=== PATIENT | male | born 1985 | race Caucasian/White ===

== ENCOUNTER 2025-03-07 09:36 | Emergency (ER) | payer OTHER, SELFPAY ==
[2025-03-07 09:37] VITALS: BP 139/98; PULSE 109; RESP 18; TEMP 35.9; O2SAT 98; BMI 29.9
--- NOTE | 2025-03-07 09:41 | RAD_ITS ---
PROCEDURE: FOOT MIN 3 VIEWS 03/07/2025 REASON FOR EXAM: TOE INJURY AND DEFORMITY-LEFT GREAT TOE DIGIT #1 TECHNIQUE: Left foot three views COMPARISON: None FINDINGS: There is dislocation of the interphalangeal joint of the great toe with dorsal displacement of the distal phalanx. There is a 0.45 cm corticated osteochondral fragment noted at the level of the joint space on the lateral view. The Lisfranc articulation is aligned. There is no visible radiopaque foreign body or soft tissue abnormality. RAD/Foot min 3 Views IMPRESSION: There is dislocation of the interphalangeal joint of the great toe with dorsal displacement of the distal phalanx. There is a 0.45 cm corticated osteochondral fragment noted at the level of the joint space on the lateral view. Critical results were discussed with Viky by Dr. Baez at the time of di ctation. Reading Location: [facility]
--- NOTE | 2025-03-07 10:48 | ED.VIS.LOWEX ---
HPI History of Present Illness HPI Narrative: 39-year-old male no significant past medical history. 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 He was coming down a ladder he missed a couple rungs when he landed he injured his left great toe and dislocated. No prior history or surgery to this foot. 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 Prior similar symptoms: No Recent Illness/Hospitalization: No PFSH PFSH Medical History no medical history no medical history Home Medications ?Medication ?Instructions ?Recorded ?Last Taken ?Type NK 03/07/25 Unknown History Allergy/AdvReac Type Severity Reaction Status Date / Time No Known Allergies Allergy Verified 03/07/25 10:18 Surgical History H/O vasectomy Social History household members: spouse current occupational status: employed Smoking Status: Never smoker ROS ROS ED ROS Narrative Denies recent illness. Constitutional Constitutional ED: Denies fever(s) Eyes Eyes: Denies blurry vision ENT ENT ED: Denies ear pain Cardiovascular Cardiovascular: Denies chest pain Respiratory/Chest Respiratory/Chest: Denies cough Gastrointestinal Gastrointestinal: Denies abdominal pain Genitourinary Genitourinary ED: Denies dysuria Musculoskeletal Musculoskeletal: Denies arthralgias Integumentary Denies abscess Psychiatric Psychiatric: Denies anxiety Endocrine Endocrinology: Denies polydipsia Hematologic/Lymphatic Hematologic/Lymphatic: Denies easy bleeding Allergic/Immunologic Allergic/Immunologic ED: Denies mouth swelling or tongue swelling EXAM Physical Exam Narrative Exam Narrative: 39-year-old male no acute distress. Vital signs stable afebrile. H EENT exam unremarkable atraumatic. Pupils round reactive light. Neck nontender. Lungs clear. Heart regular rhythm rate about 105 no murmur. Chest wall ribs nontender. Abdomen soft nontender. Moving all 4 extremities. Neurovascularly intact. His left great toe is dislocated at the interphalangeal joint. Skin intact. Normal touch sensation and cap refill. I manually reduced the dislocation. Patient tolerated well. He is able to flex and extend now of the left great toe. He can extend against resistance. There is no obvious signs of tendon rupture or tear. Foot is neurovascularly intact with normal DP pulse. Const Vital Signs: 03/07/25 09:37 Temperature 96.6 F L Temperature Source Temporal Pulse Rate 109 H Respiratory Rate 18 Blood Pressure 139/98 H Blood Pressure Mean 111 Pulse Ox 98 Oxygen Delivery Method Room Air Positive well nourished and well developed; Negative for obese, cachectic, contractures or unkempt General Appearance ED: well developed and NAD; Negative for unkempt, cachectic or contractures Nutritional Appearance: Negative for cachectic or obese HEENT Reports moist mucous membranes normocephalic and atraumatic; Negative for trauma Eyes PERRL Neck full ROM and supple Chest Wall inspection of chest normal and palpation of chest normal Resp normal respiratory effort, no retractions and clear to auscultation bilaterally Cardio regular rate, regular rhythm, S1 normal heart sound, S2 normal heart sound and no murmurs Rate: Negative for bradycardia or tachycardic Rhythm: Negative for abnormal rhythm Bruits: Negative for other GI non-tender, non-distended and no masses Auscultation: normoactive bowel sounds Palpation: soft; Negative for tender or guarding Back/Spine no CVA tenderness Extremity normal to inspection and full ROM Extremity Narrative: Except dissipated left great toe DIP joint. Neuro oriented x3, CN's II-XII intact bilaterally, moves all extremities and no sensory deficits noted Sensorium / Orientation: alert, oriented to person, oriented to place and oriented to time; Negative for orientation impaired Motor Exam: strength 5/5 throughout Psych mental status grossly normal Appearance: Negative for unkempt Skin no wounds Lesions: no lesions Rashes: no rashes MDM MDM MDM Narrative Medical decision making narrative: 39-year-old male dislocated left great toe at the IP. Was manually reduced without local anesthetic as he and I discussed. Post reduction x-ray will be obtained. Repeat exam patient is doing well at 11:25 AM. He will be discharged back to work. Ice. [place]. Follow-up with podiatry if needed. Radiography Diagnostic Testing: Clinical Impression(s) from Imaging Studies Foot X-Ray 03/07/25 09:41 IMPRESSION: There is dislocation of the interphalangeal joint of the great toe with dorsal displacement of the distal phalanx. There is a 0.45 cm corticated osteochondral fragment noted at the level of the joint space on the lateral view. Critical results were discussed with Viky by Dr. Baez at the time of dictation. Reading Location: [facility] Left great toe, 3 views, interpreted both by myself and the radiologist. Shows a dislocated left great toe distal phalanx. No fracture. There is an accessory bone. Postreduction right great toe x-ray. Appropriately reduced. Good alignment. No fracture. Discharge Plan Triage Chief Complaint: Lower Extremity Injury ED Provider: Curtis Richardson Dx/Rx/DC Orders Clinical Impression: Closed dislocation of toe, Hx of reduction of closed dislocation, Encounter related to worker's compensation claim Instructions: ED Toe Dislocation Prescriptions: No Action NK Primary Care Provider: Care Physician,No Primary Referrals: Nelson Wong DPM [Med Staff - Active Staff] - As Needed Care Physician,No Primary [Primary Care Provider] - Activity Restrictions/Additional Instructions: Ice and elevate to decrease pain and swelling. Motrin for pain and swelling and Tylenol for pain. Follow-up with manipulative therapy specialist if you are having any problems. At this time there is no obvious signs of any tendon rupture. Print Language: Maltese Disposition Disposition: Home, Self Care
--- NOTE | 2025-03-07 11:10 | RAD_ITS ---
PROCEDURE: TOE(S) MIN 2 VIEWS 03/07/2025 REASON FOR EXAM: POST REDUCTION LEFT GREAT TOE TECHNIQUE: Three-view left toes, postreduction COMPARISON: Left foot study 03/07/2025. RAD/Toe(s) Min 2 Views IMPRESSION: Interval successful reduction of the left 1st interphalangeal joint. No fracture site is identified at this time. If clinical concern persists, short-term follow-up imaging may be obtained to r ule out a currently occult fracture. Reading Location: [id number]
[2025-03-07 11:40] VITALS: BP 138/70; PULSE 90; RESP 17; TEMP 35.9; O2SAT 98
== END 2025-03-07 11:41 | disposition home or self-care (01) ==
PROVIDERS: Emergency Provider Emergency Medicine; Visit Provider Emergency Medicine
DX: S93.112A Dislocation of interphalangeal joint of left great toe, initial encounter (principal); W11.XXXA Fall on and from ladder, initial encounter; Y93.89 Activity, other specified; Y99.0 Civilian activity done for income or pay
CPT/HCPCS: 28660; 73630; 73660; 99282